=== PATIENT | female | born 1995 | race Caucasian/White ===

== ENCOUNTER 2024-11-25 16:44 | Outpatient (CLI) | payer OTHER | END 2024-11-25 17:32 | disposition home or self-care (01) | LOC: NST 16:44 | PROVIDERS: ATTEND Obstetrics & Gynecology Gynecology | DX: Z34.83 Encounter for supervision of other normal pregnancy, third trimester (principal) ==

== ENCOUNTER 2024-11-29 10:35 | Inpatient (IN) | payer OTHER ==
[~2024-11-29] VITALS: Ht 157.5 cm; Wt 69.4 kg
[2024-11-29] MEDS ORDERED: PRENATAL TABLE1 EAC1 PO (10:58)
[2024-11-29 11:12] VITALS: BP 112/66
[2024-11-29] MEDS ORDERED: MORPHINE SULFATE 4 MG/ML CARTRIDGE IV PRN (11:15)
[2024-11-29] MEDS ORDERED: RINGERS SOLUTION,LACTATED 1,000 ML IV SCH (12:00)
[2024-11-29 12:08] LABS: BASO % 0.7 % (0.1-1.2); EOS # 0.08 (0.04-0.54); EOS % 0.9 % (0.7-7.0); LYMPH # 1.62 (1.18-3.74); LYMPH % 18.6 % (19.3-53.1); MEAN PLATELET VOLUME 11.10 fl (9.4-12.4); MONO # 0.62 (0.24-0.82); MONO % 7.1 % (4.7-12.5); NEUT # 6.19 (1.56-6.13); NEUT % 71.3 % (34.0-71.1); RED CELL DISTRIBUTION WIDTH 12.8 % (11.6-14.4)
[2024-11-29 12:16] LABS: URINE APPEARANCE Clear; URINE BILIRRUBIN Negative (NEGATIVE); URINE BLOOD Negative; URINE COLOR Yellow; URINE GLUCOSE Negative (NEGATIVE); URINE KETONE Trace (NEGATIVE); URINE LEUKOCYTE Negative; URINE NITRATE Negative; URINE PROTEIN Negative (NEGATIVE); URINE UROBILINOGEN 0.2 E.U./dl
[2024-11-29 12:18] LABS: URINE BACTERIA 522.9 uL (0.0-1933); URINE EPITHELIAL CELLS 5.9 uL (0.0-38.8); URINE WBC 3.9 uL (0.0-23.2)
[2024-11-29 12:29] LABS: INR < 0.93
[2024-11-29 12:33] LABS: ALT/SGPT 17.0 U/L (12-78); AST/SGOT 13.0 U/L (15-37); BILIRUBIN TOTAL 0.28 mg/dL (0.3-1.2); BUN CREA RATIO 17.0 (7.0-25.0); CREATININE SERUM 0.66 mg/dL (0.55-1.02); GFR 104.46; GLOBULINA 3.7 G/DL (2.4-3.5); GLUCOSE FASTING 76.0 mg/dL (65-100); OSMOLALITY SERUM 278.0 MOSM/KG (275-295)
[2024-11-29 12:55] LABS: URINE CAST 0.14 uL (0.0-1.40); URINE RBC 0.8 uL (0.0-20.8)
[2024-11-29] MEDS ORDERED: MISOPROSTOL 25 MCG TABLET VAG ONE (15:00)
[2024-11-29 15:36] VITALS: BP 114/69
[2024-11-29 19:07] VITALS: BP 109/69
[2024-11-29 23:36] VITALS: BP 109/66
[2024-11-30] VITALS (8 sets, daily range): BP systolic 103–113; BP diastolic 59–74
[2024-11-30] MEDS ORDERED: OXYTOCIN 500 ML IV ONE (06:45)
[2024-11-30] MEDS ORDERED: ONDANSETRON HCL 2 MG/ML VIAL IV NR (11:30)
[2024-11-30] MEDS ORDERED: FAMOTIDINE/PF 20 MG/2 ML VIAL IV PUSH ONE (14:15)
[2024-11-30] MEDS ORDERED: FAMOTIDINE/PF 20 MG/2 ML VIAL ONE (14:29)
[2024-11-30] MEDS ORDERED: OXYTOCIN 20 UNITS/1000ML RL PIGGYBAG IV ONE (15:32)
[2024-11-30] MEDS ORDERED: LIDOCAINE HCL 1% 10ML VIAL ONE (15:32)
[2024-11-30] MEDS ORDERED: ERYTHROMYCIN BASE OPHT 1GM EACH TUBE OP ONE ×2 (15:32→19:30)
[2024-11-30] MEDS ORDERED: CHLORHEXIDINE GLUCONATE 120 ML BOTTLE TOP ONE ×2 (15:32→19:30)
[2024-11-30] MEDS ORDERED: ACETAMINOPHEN 500 MG GEL..CAP PO PRN (18:15)
[2024-11-30] MEDS ORDERED: OXYTOCIN 1,000 ML IV SCH (18:15)
[2024-11-30] MEDS ORDERED: CHLORHEXIDINE GLUCONATE 120 ML BOTTLE TP SCH (18:15)
[2024-11-30] MEDS ORDERED: LIDOCAINE HCL 1% 10ML VIAL IJ ONE (19:30)
[2024-11-30] MEDS ORDERED: GABAPENTIN 300 MG CAPSULE PO SCH (21:00)
[2024-12-01 01:29] VITALS: BP 96/63
[2024-12-01 04:00] VITALS: BP 99/67
[2024-12-01 06:16] LABS: BASO % 0.3 % (0.1-1.2); EOS # 0.07 (0.04-0.54); EOS % 0.5 % (0.7-7.0); LYMPH # 1.70 (1.18-3.74); LYMPH % 11.8 % (19.3-53.1); MEAN PLATELET VOLUME 12.00 fl (9.4-12.4); MONO # 1.18 (0.24-0.82); MONO % 8.2 % (4.7-12.5); NEUT # 11.39 (1.56-6.13); NEUT % 78.6 % (34.0-71.1); RED CELL DISTRIBUTION WIDTH 13.0 % (11.6-14.4)
[2024-12-01 09:27] VITALS: BP 108/56
[2024-12-01 16:20] VITALS: BP 95/50
[2024-12-02] VITALS: BP 109/69
[2024-12-02 09:11] VITALS: BP 102/59; O2SAT 99
== END 2024-12-02 12:39 | disposition home or self-care (01) | DRG 807 ==
LOC: LDR 10:35 → OB/GYN 10:35 → LDR 11:30 → OB/GYN 11-30 19:57
PROVIDERS: Obstetrics & Gynecology; ADMIT Obstetrics & Gynecology Gynecology; ATTEND Obstetrics & Gynecology Gynecology
PROC: 3E033VJ Introduction of Other Hormone into Peripheral Vein, Percutaneous Approach (ICD-10-PCS; 2024-11-29)
PROC: 3E0P7VZ Introduction of Hormone into Female Reproductive, Via Natural or Artificial Opening (ICD-10-PCS; 2024-11-29)
PROC: 4A1HXCZ Monitoring of Products of Conception, Cardiac Rate, External Approach (ICD-10-PCS; 2024-11-29)
PROC: 10E0XZZ Delivery of Products of Conception, External Approach (ICD-10-PCS; principal; 2024-11-30)
PROC: 0KQM0ZZ Repair Perineum Muscle, Open Approach (ICD-10-PCS; 2024-11-30)
DX: O70.1 Second degree perineal laceration during delivery (principal); Z37.0 Single live birth; Z3A.38 38 weeks gestation of pregnancy